=== PATIENT | female | born 1985 | race Caucasian/White ===

== ENCOUNTER 2016-11-18 18:53 | Emergency (ER) | payer MEDICAID, OTHER ==
[~2016-11-18] VITALS: Ht 175.3 cm; Wt 85.0 kg
[2016-11-18 18:57] VITALS: Ht 175.3 cm; Wt 85.0 kg
[2016-11-18 19:47] LABS: BASOPHIL # 0.1 10^3/ul (0.0-0.1); BASOPHILS % 0.6 % (0.0-2.0); EOSINOPHILS # 0.1 10^3/ul (0.0-0.5); EOSINOPHILS % 1.3 % (0.0-7.0); HEMATOCRIT 43.2 % (37.0-47.0); HEMOGLOBIN 14.1 g/dl (12.0-16.0); LYMPHOCYTES # 4.1 10^3/ul (0.8-2.9); LYMPHOCYTES % 40.1 % (15.0-51.0); MEAN CORPUSCULAR HEMOGLOBIN 28.4 pg (29.0-33.0); MEAN CORPUSCULAR HGB CONC 32.6 g/dl (32.0-37.0); MEAN CORPUSCULAR VOLUME 87.1 fl (82.0-101.0); MEAN PLATELET VOLUME 9.1 fl (7.4-10.4); MONOCYTE # 0.7 10^3/ul (0.3-0.9); MONOCYTES % 7.1 % (0.0-11.0); NEUTROPHILS % 50.6 % (39.0-77.0); PLATELET COUNT 323 10^3/UL (140-415); RED BLOOD COUNT 4.96 10^6/ul (4.20-5.40); RED CELL DISTRIBUTION WIDTH 14.5 % (11.5-14.5); WHITE BLOOD COUNT 10.3 10^3/ul (4.8-10.8)
[2016-11-18 20:01] LABS: ADD UMIC NO; UR ASCORBIC ACID NEGATIVE (NEGATIVE); UR BILIRUBIN (Dip) NEGATIVE (NEGATIVE); UR BLOOD (Dip) NEGATIVE (NEGATIVE); UR CLARITY CLEAR (CLEAR); UR COLOR COLORLESS (YELLOW); UR GLUCOSE (Dip) NEGATIVE (NEGATIVE); UR KETONES (Dip) NEGATIVE (NEGATIVE); UR LEUKOCYTE ESTERASE (Dip) NEGATIVE Leu/ul (NEGATIVE); UR NITRITE (Dip) NEGATIVE (NEGATIVE); UR SPECIFIC GRAVITY (Dip) 1.002 (1.003-1.030); UR TOTAL PROTEIN (Dip) NEGATIVE (NEGATIVE); UR UROBILINOGEN (Dip) NEGATIVE (NEGATIVE)
[2016-11-18 20:15] LABS: ALANINE AMINOTRANSFERASE 38 IU/L (13-69); ALBUMIN 4.7 g/dl (3.3-4.9); ALBUMIN/GLOBULIN RATIO 1.51; ALKALINE PHOSPHATASE 66 IU/L (42-121); ANION GAP 19 (8-16); ASPARTATE AMINO TRANSFERASE 45 IU/L (15-46); BILIRUBIN,INDIRECT 0.2 mg/dl (0-1.1); BILIRUBIN,TOTAL 0.2 mg/dl (0.2-1.3); BLOOD UREA NITROGEN 9 mg/dl (7-20); CALCIUM 8.6 mg/dl (8.4-10.2); CARBON DIOXIDE 22 mmol/L (21-31); CHLORIDE 108 mmol/L (97-110); CREATININE 0.78 mg/dl (0.44-1.00); GLUCOSE 89 mg/dl (70-220); SODIUM 145 mmol/L (135-144); TOTAL PROTEIN 7.8 g/dl (6.1-8.1)
[2016-11-18 20:16] LABS: ACETAMINOPHEN < 10.0 ug/ml (10.0-30.0); SALICYLATE < 1.0 mg/dl (5.0-30.0)
[2016-11-18 20:22] LABS: CANNABINOIDS Negative (NEGATIVE)
[2016-11-18 20:27] LABS: BARBITURATES Negative (NEGATIVE); BENZODIAZEPINES Negative (NEGATIVE); COCAINE Negative (NEGATIVE); OPIATES Negative (NEGATIVE)
--- NOTE | 2016-11-18 21:07 | PSY ---
Date/Time of Note Date/Time of Note DATE: 11/19/16 TIME: 00:01 Psychiatric Subjective Eval Consent Pt consented to telemedicine: Yes Subjective Evaluation Patient location: emergency Chief Complaint: found altered in stairwell, reported took Paxil, psych history Reason for consult: suicide attempt History of present illness HPI: 31 yo female with unclear psych hx, reportedly took overdose of paxil and was found unconscious by mother under stairwell in their buildling. Police brought her to ED. Was initially very combative adn agitated. MD met with pt. She would say she could hear MD and answered questions about her name but did not answer any other questions, just either stared at MD or covered head. Past Psych Hx: unknown and pt would not report PMHx: unknown and pt would not report All: unknown and pt would not report MSE: appears stated age, under covers, answers affirmatively to questions about name and whether she can hear MD but otherwise just stares at MD or covers head when MD asks questions Imp: 31 yo female s/p overdose on paxil, also possibly psychotic, was likely a suicide attempt given the intentional appearance of it as well as her current MSE which appears markedly abnormal -woudl obtain parallel hx from mother abou [facility] mood and any suicidal statements -likely 5150 as pt is acute risk of harm to self unless the mother or pt provides info making it clear that overdose adn Mental status were normal and indicative of risk -utox and full medical workup -for moderate agitation zyprexa 5mg po prn -for severe agitation haldol 5mg IM, ativan 2mg im cogentin 1mg im prn Hospitalization: Suicidal Attempt(s) Allergies: Coded Allergies: No Known Allergy (Unverified , 11/18/16) Social History Marital status: single DPA/Conservatorship: No Occupation/[employer]: See notes. [employer] filed 5250 hold, placed in pt's chart. Psychiatric Objective Eval Mental Status Examination: Laboratory Results Laboratory Tests Test 11/18/16 19:05 11/18/16 19:10 Urine Color COLORLESS Urine Clarity CLEAR Urine pH 6.0 Urine Specific [place] 1.002 Urine Ketones NEGATIVEmg/dL Urine Nitrite NEGATIVEmg/dL Urine Bilirubin NEGATIVEmg/dL Urine Urobilinogen NEGATIVEmg/dL Urine Leukocyte Esterase NEGATIVELeu/ul Urine Hemoglobin NEGATIVEmg/dL Urine Glucose NEGATIVEmg/dL Urine Total Protein NEGATIVEmg/dl Urine Opiates Screen Negative Urine Barbiturates Negative Urine Amphetamines Screen Negative Urine Benzodiazepines Screen Negative Urine Cocaine Screen Negative Urine Cannabinoids Negative White Blood Count 10.310^3/ul Red Blood Count 4.9610^6/ul Hemoglobin 14.1g/dl Hematocrit 43.2% Mean Corpuscular Volume 87.1fl Mean Corpuscular Hemoglobin 28.4pg Mean Corpuscular Hemoglobin Concent 32.6g/dl Red Cell Distribution Width 14.5% Platelet Count 44387^3/UL Mean Platelet Volume 9.1fl Neutrophils % 50.6% Lymphocytes % 40.1% Monocytes % 7.1% Eosinophils % 1.3% Basophils % 0.6% Nucleated Red Blood Cells % 0.0/100WBC Neutrophils # (Manual) 510^3/ul Lymphocytes # 4.110^3/ul Monocytes # 0.710^3/ul Eosinophils # 0.110^3/ul Basophils # 0.110^3/ul Nucleated Red Blood Cells # 0.010^3/ul Sodium Level 145mmol/L Potassium Level 4.0mmol/L Chloride Level 108mmol/L Carbon Dioxide Level 22mmol/L Anion Gap 19 Blood Urea Nitrogen 9mg/dl Creatinine 0.78mg/dl Glucose Level 89mg/dl Calcium Level 8.6mg/dl Total Bilirubin 0.2mg/dl Direct Bilirubin 0.00mg/dl Indirect Bilirubin 0.2mg/dl Aspartate Amino Transf (AST/SGOT) 45IU/L Alanine Aminotransferase (ALT/SGPT) 38IU/L Alkaline Phosphatase 66IU/L Total Protein 7.8g/dl Albumin 4.7g/dl Globulin 3.10g/dl Albumin/Globulin Ratio 1.51 Salicylates Level < 1.0mg/dl Acetaminophen Level < 10.0ug/ml Ethyl Alcohol Level 333.0mg/dl ESTUARDO ROBERTS Nov 18, 2016 21:06
[2016-11-18 22:27] VITALS: BP 110/62; PULSE 88; RESP 16; TEMP 98.2
--- NOTE | 2016-11-18 23:10 | ERA ---
ER Documentation Chief Complaint Date/Time DATE: 11/18/16 TIME: 23:04 Chief Complaint found altered in stairwell, reported took Paxil, psych history HPI This 31-year-old female was found by her mother in the stairwell of her mother' s apartment building. She is not live in her mother's apartment building. She states that she took Paxil. The police say that she said that she was suicidal and that she would not talk. Patient herself does not want to speak except to say that she would like some grapefruit juice. ROS All systems reviewed and are negative except as per history of present illness. Allergies Allergies: Coded Allergies: No Known Allergy (Unverified , 11/18/16) PMhx/Soc Medical and Surgical Hx: pt denies Medical Hx, pt denies Surgical Hx Hx Alcohol Use: No (denies) Hx Substance Use: No (denies) Hx Tobacco Use: No (denies) Smoking Status: Never smoker Physical Exam Vitals Vital Signs Date Time Temp Pulse Resp B/P Pulse Ox O2 Delivery O2 Flow Rate FiO2 11/18/16 22:27 98.2 88 16 110/62 98 Room Air 11/18/16 18:57 83 20 130/80 95 Physical Exam Const: [] No distress, first patient refused to talk until asked if she wanted some juice, then she was willing to answer some questions. Head: Atraumatic Eyes: Normal Conjunctiva, EOMI, PRL ENT: Normal External Ears, Nose and Mouth. Neck: Full range of motion..~ No meningismus. Resp: Clear to auscultation bilaterally Cardio: Regular rate and rhythm, no murmurs Abd: Soft, non tender, non distended. Normal bowel sounds Skin: No petechiae or rashes Back: No midline or flank tenderness Ext: No cyanosis, or edema Neur: Awake and alert and oriented 3, no focal deficits Psych: Flat affect Result Diagram: 11/18/16190911/18/161909 Results 24 hrs Laboratory Tests Test 11/18/16 19:05 11/18/16 19:10 Urine Color COLORLESS Urine Clarity CLEAR Urine pH 6.0 Urine Specific [place] 1.002 Urine Ketones NEGATIVEmg/dL Urine Nitrite NEGATIVEmg/dL Urine Bilirubin NEGATIVEmg/dL Urine Urobilinogen NEGATIVEmg/dL Urine Leukocyte Esterase NEGATIVELeu/ul Urine Hemoglobin NEGATIVEmg/dL Urine Glucose NEGATIVEmg/dL Urine Total Protein NEGATIVEmg/dl Urine Opiates Screen Negative Urine Barbiturates Negative Urine Amphetamines Screen Negative Urine Benzodiazepines Screen Negative Urine Cocaine Screen Negative Urine Cannabinoids Negative White Blood Count 10.310^3/ul Red Blood Count 4.9610^6/ul Hemoglobin 14.1g/dl Hematocrit 43.2% Mean Corpuscular Volume 87.1fl Mean Corpuscular Hemoglobin 28.4pg Mean Corpuscular Hemoglobin Concent 32.6g/dl Red Cell Distribution Width 14.5% Platelet Count 23512^3/UL Mean Platelet Volume 9.1fl Neutrophils % 50.6% Lymphocytes % 40.1% Monocytes % 7.1% Eosinophils % 1.3% Basophils % 0.6% Nucleated Red Blood Cells % 0.0/100WBC Neutrophils # (Manual) 510^3/ul Lymphocytes # 4.110^3/ul Monocytes # 0.710^3/ul Eosinophils # 0.110^3/ul Basophils # 0.110^3/ul Nucleated Red Blood Cells # 0.010^3/ul Sodium Level 145mmol/L Potassium Level 4.0mmol/L Chloride Level 108mmol/L Carbon Dioxide Level 22mmol/L Anion Gap 19 Blood Urea Nitrogen 9mg/dl Creatinine 0.78mg/dl Glucose Level 89mg/dl Calcium Level 8.6mg/dl Total Bilirubin 0.2mg/dl Direct Bilirubin 0.00mg/dl Indirect Bilirubin 0.2mg/dl Aspartate Amino Transf (AST/SGOT) 45IU/L Alanine Aminotransferase (ALT/SGPT) 38IU/L Alkaline Phosphatase 66IU/L Total Protein 7.8g/dl Albumin 4.7g/dl Globulin 3.10g/dl Albumin/Globulin Ratio 1.51 Salicylates Level < 1.0mg/dl Acetaminophen Level < 10.0ug/ml Ethyl Alcohol Level 333.0mg/dl Procedures/MDM Alcohol intoxication who had taken 2 extra Paxil pills as well. Please placed the patient on a hold and said that she had stated that she was suicidal, however they had also said that she would not tell them anything. So is questionable admission of any suicidal thoughts. She she will not answer many other questions and that however has not normal full physical exam and normal vital signs. Does have alcohol intoxication. She refused to speak to tele- psychiatry. When her alcohol level is lower we will try tele-psychiatry again. From my standpoint she is medically cleared and I see no medical issues that would preclude her from psychiatric admission but this will be finalized by the oncoming ER physician when the patient has a low alcohol level. Departure Diagnosis: Primary Impression: Alcohol intoxication Condition: Stable DIDIER GODOY DO Nov 18, 2016 23:10
== END 2016-11-18 23:25 ==
LOC: E/R 18:53
DX: F10.120 Alcohol abuse with intoxication, uncomplicated (principal); R40.2252 Coma scale, best verbal response, oriented, at arrival to emergency department; R40.2142 Coma scale, eyes open, spontaneous, at arrival to emergency department; R40.2362 Coma scale, best motor response, obeys commands, at arrival to emergency department
CPT/HCPCS: 36415; 80053; 80306; 80307; 81003; 85025; Z7502; 99285